=== PATIENT | female | born 1930 | race Caucasian/White ===

== ENCOUNTER 2018-05-14 14:38 | Emergency (ER) | payer OTHER ==
[~2018-05-14] VITALS: Ht 152.4 cm; Wt 52.2 kg
[2018-05-14] MEDS ORDERED: COZAAR100 MG (15:10)
[2018-05-14] MEDS ORDERED: SYNTHROID88 MCG (15:10)
[2018-05-14] MEDS ORDERED: NAMENDA5 MG (15:11)
[2018-05-14] MEDS ORDERED: TEMAZEPAM7.5 MG (15:12)
[2018-05-14] MEDS ORDERED: WHEELCHAIR (18:13)
[2018-05-14] MEDS ORDERED: ULTRACET PO ×2 (18:13→21:15)
[2018-05-14] MEDS ORDERED: WHEELCHAIR1 EACH TOP (18:13)
[2018-05-14] MEDS ORDERED: LODINE XL400 MG PO (18:13)
[2018-05-14] MEDS ORDERED: WALKER {1, null} (18:21)
[2018-05-14] MEDS ORDERED: MEDROLPACK PO (21:15)
== END 2018-05-14 21:59 | disposition home or self-care (01) ==
LOC: ER 14:38
DX: S72.112A Displaced fracture of greater trochanter of left femur, initial encounter for closed fracture (principal); W18.39XA Other fall on same level, initial encounter; Y93.89 Activity, other specified; Y92.098 Other place in other non-institutional residence as the place of occurrence of the external cause; Y99.8 Other external cause status; R42 Dizziness and giddiness; G30.8 Other Alzheimer's disease; F02.80 Dementia in other diseases classified elsewhere, unspecified severity, without behavioral disturbance, psychotic disturbance, mood disturbance, and anxiety